=== PATIENT | female | born 1975 | race Caucasian/White ===

== ENCOUNTER 2021-05-22 15:41 | Outpatient (REF) | payer BC, SELFPAY ==
[2021-05-22 21:43] LABS: ALT 27 U/L (14-59); AST 16 U/L (15-37)
== END 2021-05-22 15:42 | disposition home or self-care (01) ==
LOC: NCHCN 15:41
PROVIDERS: Visit Provider Registered Nurse
DX: F10.99 Alcohol use, unspecified with unspecified alcohol-induced disorder (principal)
CPT/HCPCS: 84450; 84460

== ENCOUNTER 2021-06-26 14:18 | Outpatient (REF) | payer BC, SELFPAY ==
--- NOTE | 2021-06-26 13:20 | PAPFT_PTH ---
PATIENT: Lin Pompa LOC: [facility]#:[id number] AGE/SX: 46/F ROOM: RE06/26/[address]: Aundrea Gu : 1975 BED: DIS: 06/26/2021 SPEC #: [id number] RECD: 06/27/21 13:03 STATUS: ISIDRO REQ #: [id number] JONY: 06/26/21 13:[address]: Aundrea Gu DEPT: [facility] Cytology RECD BY: Peggy Paul ENTERED: 06/27/21 13:03 SP TYPE: PAPFT OT DR: Unknown,Unknown Tissues: 1 - CX/ENDOCX FOR PAP SMEARS Procedures: PAP THIN PREP/[facility] Screening HPV DNA PROBE Comments: [id number]
== END 2021-06-26 14:19 | disposition home or self-care (01) ==
LOC: NCHCN 14:18
PROVIDERS: Visit Provider Registered Nurse
DX: Z12.4 Encounter for screening for malignant neoplasm of cervix (principal); Z11.51 Encounter for screening for human papillomavirus (HPV)
CPT/HCPCS: 88142; 87624

== ENCOUNTER 2023-10-14 13:47 | Outpatient (REF) | payer BC, SELFPAY ==
[2023-10-14 16:03] LABS: HCT 39.9 % (36.0-46.0); HGB 13.5 g/dL (11.2-15.7); MCH 31.8 pg (27.0-33.0); MCHC 33.8 % (32.0-36.0); MCV 94 fL (80-95); MPV 11.9 fL (8.0-11.0); Platelet Count 267 10^3/uL (130-400); RBC 4.25 10^6/uL (3.93-5.22); RDW-SD 44.4 fL; WBC 7.73 10^3/uL (4.4-10.8)
[2023-10-14 16:54] LABS: ALT 23 U/L (14-59); AST 15 U/L (15-37); Albumin 4.1 g/dL (3.4-5.0); Alkaline Phosphatase 52 U/L (46-116); Anion Gap 5.8 mmol/L (3-11); BUN 12 mg/dL (7-18); Bilirubin, Total 0.3 mg/dL (0.2-1.0); CO2 28.2 mmol/L (21.0-32.0); CREATININE 0.7 mg/dL (0.55-1.02); Calcium 9.2 mg/dL (8.5-10.1); Calculated LDL 75 mg/dL (<100); Chloride 104 mmol/L (98-107); Cholesterol 161 mg/dL (<200); Estimated GFR 107.95 (mL/min/1.73m2); Glucose 95 mg/dL (74-106); HDL Cholesterol 71 mg/dL (40-60); Potassium 4.1 mmol/L (3.5-5.1); Sodium 138 mmol/L (136-145); TSH (W/Ref FT4) 0.85 uIU/mL (0.36-3.74); Total Protein 7.6 g/dL (6.4-8.2); Triglyceride 79 mg/dL (<150)
== END 2023-10-14 13:48 | disposition home or self-care (01) ==
LOC: NCHCN 13:47
PROVIDERS: Visit Provider Family Medicine
DX: R63.5 Abnormal weight gain (principal); Z86.2 Personal history of diseases of the blood and blood-forming organs and certain disorders involving the immune mechanism; Z13.220 Encounter for screening for lipoid disorders
CPT/HCPCS: 80053; 80061; 85027; 84443